=== PATIENT | male | born 1950 | race Caucasian/White ===

== ENCOUNTER 2021-06-20 09:52 | Inpatient (IN) | payer OTHER, MEDICARE ==
[2021-06-20] MEDS ORDERED: SODIUM CHLORIDE 0.9% 500 ML 500 ML IV ONE (10:29)
[2021-06-20] MEDS ORDERED: DILTIAZEM 125 MG in SODIUM CHLORIDE 0.9% 100 ML IV SCH (10:30)
[2021-06-20] MEDS ORDERED: DILTIAZEM DRIP BOLUS FROM BAG 1 MG SOLN IV ONE (10:30)
--- NOTE | 2021-06-20 10:34 | ED ---
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 Patient had presented to the water main installer helper's office with chief complaint of palpitations which have been ongoing for the past several weeks. Patient has had intermittent chest palpitations throughout his life. He has never been diagnosed with atrial fibrillation or atrial flutter or any dysrhythmia. He denies central chest pain. Denies dyspnea. Patient states the palpitations have been present for about 2 weeks. No focal numbness or weakness. No headach e. No rectal bleeding. - Related Data Home Medications Medication Instructions Recorded Confirmed Albuterol Sulfate [Proair Hfa] 2 puff INHALATION RT-Q6H PRN 06/20/21 06/20/21 Ascorbic Acid [Vitamin C] 500 mg PO DAILY 06/20/21 06/20/21 Aspirin EC [Ecotrin Low Dose] 81 mg PO DAILY 06/20/21 06/20/21 Cholecalciferol [Vitamin D3 (25 25 mcg PO DAILY 06/20/21 06/20/21 Mcg = 1000 Iu)] Ipratropium/Albuterol Sulfate 1 puff INHALATION RT-Q6H 06/20/21 06/20/21 [Combivent Respimat Inhaler] Metoprolol Tartrate [Lopressor] 25 mg PO BID 06/20/21 06/20/21 [place]-3 Fatty Acids/Fish Oil [Fish 1 cap PO DAILY 06/20/21 06/20/21 Oil 1,000 mg Softgel] Pravastatin Sodium [Pravachol] 40 mg PO HS 06/20/21 06/20/21 Allergies Allergy/AdvReac Type Severity Reaction Status Date / Time No Known Allergies Allergy Verified 06/20/21 10:58 Review of Systems ROS Statement: Those systems with pertinent positive or pertinent negative responses have been documented in the HPI. ROS Other: All systems not noted in ROS Statement are negative. Past Medical History Past Medical History: Chest Pain / Angina, Hypertension Past Surgical History: No Surgical Hx Reported Smoking Status: Never smoker Past Alcohol Use History: Daily Past Drug Use History: Marijuana General Exam Limitations: no limitations General appearance: alert, in no apparent distress Head exam: Present: atraumatic, normocephalic Eye exam: Present: normal appearance, PERRL ENT exam: Present: normal exam Neck exam: Present: normal inspection. Absent: tenderness, meningismus Respiratory exam: Present: normal lung sounds bilaterally. Absent: respiratory distress, wheezes Cardiovascular Exam: Present: tachycardia, irregular rhythm GI/Abdominal exam: Present: soft. Absent: distended, tenderness, guarding, rebound Extremities exam: Present: normal inspection, normal capillary refill. Absent: pedal edema, calf tenderness Neurological exam: Present: alert, oriented X3, CN II-XII intact. Absent: motor sensory deficit Psychiatric exam: Present: normal affect, normal mood Skin exam: Present: warm, dry, intact. Absent: cyanosis, diaphoretic Course Vital Signs 06/20/21 06/20/21 06/20/21 10:11 11:10 12:16 Temperature 98 F Pulse Rate 75 124 H 74 Respiratory 20 18 18 Rate Blood Pressure 141/85 154/116 152/96 O2 Sat by Pulse 97 98 96 Oximetry EKG Findings - EKG Comments: EKG Findings:: Neuro complex tachycardia rate of 129, suspect atrial fibrillation QRS duration 82, QTC 445, no ST segment elevation, PVC present. Repeat EKG sinus rhythm, rate of 72, NC interval 164, QRS duration 82, QTC [address] segment elevation. Medical Decision Making - Medical Decision Making 70-year-old male presenting with atrial fibrillation with RVR from Dr. Harris's office. He had been in a heart rates around 150 with suspected a flutter according to Dr. Harris prior to transfer to the emergency department. Patient has had intermittent palpitations without chest pain. No prior history of arrhythmia. He has a normal CBC, normal CMP, negative troponin. I did initiate Cardizem as well as heparin in the emergency department. His [id number] score is 2. Patient will be admitted to Dr. Rodriguez who is aware with cardiology on consultation. - Lab Data Result diagrams: 06/20/21 10:44 06/20/21 10:44 Lab Results 06/20/21 06/20/21 06/20/21 Range/Units 10:44 10:44 10:44 WBC 9.3 (3.8-10.6) k/uL RBC 5.16 (4.30-5.90) m/uL Hgb 17.3 (13.0-17.5) gm/dL Hct 48.8 (39.0-53.0) % MCV 94.5 (80.0-100.0) fL MCH 33.4 (25.0-35.0) pg MCHC 35.4 (31.0-37.0) g/dL RDW 12.1 (11.5-15.5) % Plt Count 264 (150-450) k/uL MPV 9.7 Neutrophils % 70 % Lymphocytes % 19 % Monocytes % 7 % Eosinophils % 1 % Basophils % 1 % Neutrophils # 6.5 (1.3-7.7) k/uL Lymphocytes # 1.8 (1.0-4.8) k/uL Monocytes # 0.7 (0-1.0) k/uL Eosinophils # 0.1 (0-0.7) k/uL Basophils # 0.1 (0-0.2) k/uL PT 9.8 (9.0-12.0) sec INR 0.9 (<1.2) APTT 22.9 (22.0-30.0) sec Sodium 135 L (137-145) mmol/L Potassium 4.5 (3.5-5.1) mmol/L Chloride 101 (98-107) mmol/L Carbon Dioxide 22 (22-30) mmol/L Anion Gap 12 mmol/L BUN 14 (9-20) mg/dL Creatinine 0.63 L (0.66-1.25) mg/dL Est GFR (CKD-EPI)AfAm >90 (>60 ml/min/1.73 sqM) Est GFR (CKD-EPI)NonAf >90 (>60 ml/min/1.73 sqM) Glucose 126 H (74-99) mg/dL Calcium 10.1 (8.4-10.2) mg/dL Magnesium 1.9 (1.6-2.3) mg/dL Total Bilirubin 0.9 (0.2-1.3) mg/dL AST 27 (17-59) U/L ALT 20 (4-49) U/L Alkaline Phosphatase 67 (38-126) U/L Troponin I (0.000-0.034) ng/mL Total Protein 8.0 (6.3-8.2) g/dL Albumin 4.8 (3.5-5.0) g/dL 06/20/21 Range/Units 10:44 WBC (3.8-10.6) k/uL RBC (4.30-5.90) m/uL Hgb (13.0-17.5) gm/dL Hct (39.0-53.0) % MCV (80.0-100.0) fL MCH (25.0-35.0) pg MCHC (31.0-37.0) g/dL RDW (11.5-15.5) % Plt Count (150-450) k/uL MPV Neutrophils % % Lymphocytes % % Monocytes % % Eosinophils % % Basophils % % Neutrophils # (1.3-7.7) k/uL Lymphocytes # (1.0-4.8) k/uL Monocytes # (0-1.0) k/uL Eosinophils # (0-0.7) k/uL Basophils # (0-0.2) k/uL PT (9.0-12.0) sec INR (<1.2) APTT (22.0-30.0) sec Sodium (137-145) mmol/L Potassium (3.5-5.1) mmol/L Chloride (98-107) mmol/L Carbon Dioxide (22-30) mmol/L Anion Gap mmol/L BUN (9-20) mg/dL Creatinine (0.66-1.25) mg/dL Est GFR (CKD-EPI)AfAm (>60 ml/min/1.73 sqM) Est GFR (CKD-EPI)NonAf (>60 ml/min/1.73 sqM) Glucose (74-99) mg/dL Calcium (8.4-10.2) mg/dL Magnesium (1.6-2.3) mg/dL Total Bilirubin (0.2-1.3) mg/dL AST (17-59) U/L ALT (4-49) U/L Alkaline Phosphatase (38-126) U/L Troponin I <0.012 (0.000-0.034) ng/mL Total Protein (6.3-8.2) g/dL Albumin (3.5-5.0) g/dL Critical Care Time Critical Care Time: Yes Total Critical Care Time: 35 Disposition Clinical Impression: New onset atrial fibrillation, Atrial fibrillation with RVR Disposition: ADMITTED IP TO THIS HOSP Condition: Stable Is patient prescribed a controlled substance at d/c from ED?: No Referrals: [facility],Clinic [Primary Care Provider] - 1-2 days Decision to Admit Reason: Admit from EC Decision Date: 06/20/21 Decision Time: 12:21
--- NOTE | 2021-06-20 11:07 | XR ---
EXAMINATION TYPE: XR chest 1V portable DATE OF EXAM: 06/20/2021 COMPARISON: Chest x-ray June 17, 2015 HISTORY: Dysrhythmia. TECHNIQUE: Single frontal view of the chest is obtained. FINDINGS: Patient more rotated to the right on current study. There is chronic parenchymal changes bi laterally without suspicious focal air space opacity, pleural effusion, or pneumothorax seen. Bibasi lar linear scarring and/or atelectasis. The cardiac silhouette size is upper limits of normal. The osseous structures are intact. IMPRESSION: No acute process. No significant change from prior.
[2021-06-20 11:21] LABS: ALT 20 U/L (4-49); AST 27 U/L (17-59); African American GFR (CKD) >90 (>60 ml/min/1.73 sqM); Albumin 4.8 g/dL (3.5-5.0); Alkaline Phosphatase 67 U/L (38-126); Anion Gap 12 mmol/L; Blood Urea Nitrogen 14 mg/dL (9-20); Calcium 10.1 mg/dL (8.4-10.2); Carbon Dioxide 22 mmol/L (22-30); Chloride 101 mmol/L (98-107); Glucose 126 mg/dL (74-99); Magnesium 1.9 mg/dL (1.6-2.3); Non-African American GFR(CKD) >90 (>60 ml/min/1.73 sqM); Potassium 4.5 mmol/L (3.5-5.1); Sodium 135 mmol/L (137-145); Total Bilirubin 0.9 mg/dL (0.2-1.3)
[2021-06-20 11:23] LABS: INR 0.9 (<1.2); Partial Thromboplastin Time 22.9 sec (22.0-30.0); Prothrombin Time 9.8 sec (9.0-12.0)
[2021-06-20 11:35] LABS: Basophils # (A) 0.1 k/uL (0-0.2); Basophils % (A) 1 %; Eosinophils # (A) 0.1 k/uL (0-0.7); Eosinophils % (A) 1 %; HCT 48.8 % (39.0-53.0); HGB 17.3 gm/dL (13.0-17.5); Lymphocytes # (A) 1.8 k/uL (1.0-4.8); Lymphocytes % (A) 19 %; MCH 33.4 pg (25.0-35.0); MCHC 35.4 g/dL (31.0-37.0); MCV 94.5 fL (80.0-100.0); Mean Platelet Volume 9.7; Monocytes # (A) 0.7 k/uL (0-1.0); Monocytes % (A) 7 %; Neutrophils # (A) 6.5 k/uL (1.3-7.7); Neutrophils % (A) 70 %; Platelet Count 264 k/uL (150-450); RBC 5.16 m/uL (4.30-5.90); RDW 12.1 % (11.5-15.5); WBC 9.3 k/uL (3.8-10.6)
[2021-06-20] MEDS ORDERED: HEPARIN SODIUM 1,000 UN/ML (10ML VL) IV PRN (11:49)
[2021-06-20] MEDS ORDERED: HEPARIN SODIUM 1,000 UN/ML (10ML VL) IV ONE (11:49)
[2021-06-20] MEDS ORDERED: ALBUTEROL NEBULIZED 2.5 MG/3 ML INHALATION PRN (11:56)
[2021-06-20] MEDS ORDERED: HEPARIN SOD,PORK IN 0.45% NACL 25,000 UNIT in 0.45% NACL 1 250ML.BAG IV SCH (12:00)
[2021-06-20] MEDS ORDERED: NALOXONE 0.4 MG/ML 1 ML VIAL IV PRN (12:16)
[2021-06-20] MEDS: METOPROLOL TARTRATE 50 MG TAB PO SCH ×2 (13:06→21:14)
--- NOTE | 2021-06-20 13:49 | P.HPIM ---
History of Present Illness 70-year-old pleasant male was sent in from a cardiology is office because of possible atrial flutter and fibrillation. Patient does have history of palpitations in the past never was diagnosed with atrial fibrillation. Patient had an echo echocardiogram today at bedside a period to half normal ejection fraction without any significant valvular abnormalities. Patient denied any fever chills dysuria cough. Patient denied any diarrhea patient is did not dehydrated at doesn't have any infection at this time. TSH will be ordered. Patient was given Cardizem patient converted to sinus patient uses 25 mg twice a day of metoprolol which can be switched to 50 mg twice a day oral. REVIEW OF SYSTEMS: CONSTITUTIONAL: No fever, no malaise, no fatigue. HEENT: No recent visual problems or hearing problems. Denied any sore throat. CARDIOVASCULAR: No chest pain, orthopnea, PND, no syncope. PULMONARY: No shortness of breath, no cough, no hemoptysis. GASTROINTESTINAL: No diarrhea, no nausea, no vomiting, no abdominal pain. NEUROLOGICAL: No headaches, no weakness, no numbness. HEMATOLOGICAL: Denies any bleeding or petechiae. GENITOURINARY: Denies any burning micturition, frequency, or urgency. MUSCULOSKELETAL/RHEUMATOLOGICAL: Denies any joint pain, swelling, or any muscle pain. ENDOCRINE: Denies any polyuria or polydipsia. The rest of the 14-point review of systems is negative. PHYSICAL EXAMINATION: GENERAL: The patient is alert and oriented x3, not in any acute distress. Well developed, well nourished. HEENT: Pupils are round and equally reacting to light. EOMI. No scleral icterus. No conjunctival pallor. Normocephalic, atraumatic. No pharyngeal erythema. No thyromegaly. CARDIOVASCULAR: S1 and S2 present. No murmurs, rubs, or gallops. PULMONARY: Chest is clear to auscultation, no wheezing or crackles. ABDOMEN: Soft, nontender, nondistended, normoactive bowel sounds. No palpable organomegaly. MUSCULOSKELETAL: No joint swelling or deformity. EXTREMITIES: No cyanosis, clubbing, or pedal edema. NEUROLOGICAL: Gross neurological examination did not reveal any focal deficits. SKIN: No rashes. Assessment and plan -Atrial fibrillation/flutter with rapid unclear rate presently converted to sinus rhythm appears to be obtained patient is metoprolol dose will be increased patient was also started on anticoagulation echocardiogram as mentioned above -Alcohol abuse does drink about the 4-5 beers a day counseling was provided but I do not expect any withdrawals. -Hypertension -Mild hyponatremia DVT prophylaxis: Patient is on Eliquis Past Medical History Past Medical History: Chest Pain / Angina, Hypertension Past Surgical History: No Surgical Hx Reported Smoking Status: Never smoker Past Alcohol Use History: Daily Past Drug Use History: Marijuana Medications and Allergies Home Medications Medication Instructions Recorded Confirmed Type Albuterol Sulfate [Proair Hfa] 2 puff INHALATION RT-Q6H PRN 06/20/21 06/20/21 History Ascorbic Acid [Vitamin C] 500 mg PO DAILY 06/20/21 06/20/21 History Aspirin EC [Ecotrin Low Dose] 81 mg PO DAILY 06/20/21 06/20/21 History Cholecalciferol [Vitamin D3 (25 25 mcg PO DAILY 06/20/21 06/20/21 History Mcg = 1000 Iu)] Ipratropium/Albuterol Sulfate 1 puff INHALATION RT-Q6H 06/20/21 06/20/21 History [Combivent Respimat Inhaler] Metoprolol Tartrate [Lopressor] 25 mg PO BID 06/20/21 06/20/21 History [place]-3 Fatty Acids/Fish Oil [Fish 1 cap PO DAILY 06/20/21 06/20/21 History Oil 1,000 mg Softgel] Pravastatin Sodium [Pravachol] 40 mg PO HS 06/20/21 06/20/21 History Allergies Allergy/AdvReac Type Severity Reaction Status Date / Time No Known Allergies Allergy Verified 06/20/21 10:58 Physical Exam Vitals: Vital Signs Temp Pulse Resp BP Pulse Ox 06/20/21 13:32 73 16 141/81 96 06/20/21 12:16 74 18 152/96 96 06/20/21 11:10 124 H 18 154/116 98 06/20/21 10:11 98 F 75 20 141/85 97 Intake and Output 06/19/21 06/20/21 06/20/21 22:59 06:59 14:59 Intake Total 10 Balance 10 Intake: Intake, IV Titration 10 Amount Diltiazem 125 mg In 10 Sodium Chloride 0.9% 100 ml @ 5 MG/HR 5 mls/hr IV .Q24H [facility] Rx#:[id number] Other: Weight 87.09 kg Results CBC & Chem 7: 06/20/21 10:44 06/20/21 10:44 Labs: Abnormal Lab Results - Last 24 Hours (Table) 06/20/21 Range/Units 10:44 Sodium 135 L (137-145) mmol/L Creatinine 0.63 L (0.66-1.25) mg/dL Glucose 126 H (74-99) mg/dL
--- NOTE | 2021-06-20 14:35 | CONS ---
CONSULTATION Mr. Whitt is a 70-year-old male with a history of hyperlipidemia, history of hypertension, [facility] [place], who presented with palpitations. He has been having palpitations on and off for a bit, but presented to the office today and an EKG showed evidence of atrial flutter. Patient has no documented atrial flutter in the past. He started to have palpitations a long time ago, but they are increasing in frequency and duration. This episode occurred in the middle of the night and persisted until he came into the emergency room. He feels occasional dizziness with it and does not feel well. He has chronic dyspnea on exertion related to his chronic obstructive lung disease. He has a prior history of smoking, which he stopped 20 years ago. He has no history of chest discomfort. He underwent cardiac catheterization about 10 years ago at [facility], and at that time he was told that he has mild obstructive disease. He has no PND, no orthopnea. No peripheral edema. No symptoms or history of congestive heart failure. He has a history of snoring but has not been evaluated for obstructive sleep apnea. MEDICATIONS: His medications at home include pravastatin 40 mg daily, metoprolol tartrate 25 mg twice a day, aspirin and ProAir in addition to Combivent. REVIEW OF SYSTEMS: RESPIRATORY SYSTEM: He has history of chronic obstructive lung disease, prior history of smoking. GI SYSTEM: No recent GI bleeding. No peptic ulcer disease. SYSTEM: No dysuria or hematuria. NERVOUS SYSTEM: No stroke or seizure. PHYSICAL EXAMINATION: He is a 70-year-old male, alert, oriented, in no apparent distress. Blood pressure running in the 140s over 80s with the heart rate in the 70s, back in sinus mechanism. HEAD: Normocephalic. EYES: Sclerae anicteric. NECK: Good carotid upstroke. No bruit. No jugular venous distention. LUNGS: Decreased air exchange. No wheezes. HEART: Regular rate and rhythm. S1, S2. No S3. No rub or significant murmur noted. ABDOMEN: Soft, nontender. Positive bowel sounds. No organomegaly. EXTREMITIES: No edema. Intact distal pulses. LAB DATA: Lab data revealed BUN and creatinine of 14 and 0.63, potassium 4.5. Troponin less than 0.012. His hemoglobin is 17.3, white blood cells of 9.3. Initial EKG revealed atrial flutter with rapid ventricular response and nonspecific ST-T wave changes. Subsequently he is in sinus mechanism with normal axis and intervals. Chest x-ray shows no acute infiltrate. IMPRESSION: 1. Paroxysmal atrial flutter, back in sinus mechanism. 2. History of hypertension. 3. History of hyperlipidemia. 4. Prior history of coronary artery disease by cardiac catheterization 10 years ago, asymptomatic at this time. 5. History of alcohol intake. Patient drinks 3 to 4 beers every day. RECOMMENDATIONS: I will start him on oral anticoagulation, increase the dose of his beta mandeep. I have discussed with him the importance of alcohol cessation in view of his history. I will obtain echocardiogram with Doppler. If he remains stable, I would expect he should be able to be discharged home tomorrow on anticoagulation and subsequently evaluated as an outpatient for possible ablation. He will require a sleep study as outpatient. Depending on his progress, further recommendations will be made. Thank you for this consult. Will follow with you. TARAN / BIJANN: [id number] / JIMY
[2021-06-20] MEDS: IPRATROPIUM-ALBUTEROL 3 ML NEB INHALATION SCH ×2 (14:49→20:12)
[2021-06-20] MEDS ORDERED: PANTOPRAZOLE 40 MG/10 ML VIAL IVP STA (14:56)
[2021-06-20] MEDS: APIXABAN 5 MG TAB PO SCH ×2 (18:46→21:12)
[2021-06-20] MEDS: ATORVASTATIN 40 MG TAB PO SCH (18:46)
[2021-06-20] MEDS ORDERED: PRAVASTATIN SODIUM 40 MG TAB PO SCH (21:00)
[2021-06-21] MEDS: IPRATROPIUM-ALBUTEROL 3 ML NEB INHALATION SCH ×3 (02:03→13:40)
[2021-06-21 06:58] LABS: Chol/HDL Ratio 2.62 Ratio; HDL Cholesterol 63.3 mg/dL (40.00-60.00); LDL Cholesterol,Calculated 75.9 mg/dL (0.0-131.0); VLDL Calculation 26.8 mg/dL (5.00-40.00)
[2021-06-21 08:07] LABS: Basophils % (A) 0 %; Eosinophils # (A) 0.1 k/uL (0-0.7); Eosinophils % (A) 1 %; HCT 46.1 % (39.0-53.0); HGB 15.4 gm/dL (13.0-17.5); Lymphocytes # (A) 1.7 k/uL (1.0-4.8); Lymphocytes % (A) 22 %; MCHC 33.5 g/dL (31.0-37.0); MCV 95.7 fL (80.0-100.0); Mean Platelet Volume 8.8; Monocytes # (A) 0.5 k/uL (0-1.0); Monocytes % (A) 7 %; Neutrophils # (A) 5.4 k/uL (1.3-7.7); Neutrophils % (A) 68 %; Platelet Count 226 k/uL (150-450); RBC 4.82 m/uL (4.30-5.90); RDW 12.2 % (11.5-15.5)
[2021-06-21] MEDS: METOPROLOL TARTRATE 50 MG TAB PO SCH (08:13)
[2021-06-21] MEDS: ATORVASTATIN 40 MG TAB PO SCH (08:13)
[2021-06-21] MEDS: APIXABAN 5 MG TAB PO SCH (08:13)
--- NOTE | 2021-06-21 08:13 | ECHOF ---
Referral Reason:A.Fib MEASUREMENTS -------- HEIGHT: 185.4 cm WEIGHT: 87.1 kg BP: 152/96 RVIDd: 3.2 cm (< 3.3) IVSd: 1.4 cm (0.6 - 1.1) LVIDd: 4.7 cm (3.9 - 5.3) LVPWd: 1.3 cm (0.6 - 1.1) IVSs: 1.9 cm LVIDs: 3.1 cm LVPWs: 1.6 cm LA Diam: 3.7 cm (2.7 - 3.8) LAESV Index (A-L): 20.94 ml/m Ao Diam: 3.8 cm (2.0 - 3.7) AV Cusp: 2.3 cm (1.5 - 2.6) MV EXCURSION: 21.866 mm (> 18.000) MV EF SLOPE: 96 mm/s (70 - 150) EPSS: 1.2 cm MV E Bud: 0.58 m/s MV DecT: 303 ms MV A Bud: 0.64 m/s MV E/A Ratio: 0.91 FINDINGS -------- Sinus rhythm. This was a technically difficult study with suboptimal views. The left ventricular size is normal. There is moderate concentric left ventricular hypertrophy. O verall left ventricular systolic function is normal with, an EF between 60 - 65 %. The right ventricle is normal in size and function. Normal LA size by volume 22+/-6 ml/m2. The right atrium is normal in size. 5 ml of Lumason was utilized for enhancement of images. Interatrial and interventricular septum intact. The aortic valve is trileaflet, and appears structurally normal. No aortic stenosis or regurgitation. Mild mitral annular calcification present. The tricuspid valve appears structurally normal. Unable to estimate RVSP due to inadequate TR jet s pectral doppler profile. There is no pulmonic regurgitation present. The aortic root is dilated measuring 3.8cm. Normal inferior vena cava with normal inspiratory collapse consistent with estimated right atrial pre ssure of 5 mmHg. There is no pericardial effusion. CONCLUSIONS -------- 1. The left ventricular size is normal. 2. There is moderate concentric left ventricular hypertrophy. 3. Overall left ventricular systolic function is normal with, an EF between 60 - 65 %. 4. 5 ml of Lumason was utilized for enhancement of images. 5. The aortic valve is trileaflet, and appears structurally normal. No aortic stenosis or regurgitati on. 6. Mild mitral annular calcification present. 7. The aortic root is dilated measuring 3.8cm. 8. There is no pericardial effusion. PACKAGING SALES CONSULTANT: Negar Crisostomo RDCS
[2021-06-21 08:23] LABS: African American GFR (CKD) >90 (>60 ml/min/1.73 sqM); Anion Gap 11 mmol/L; Blood Urea Nitrogen 18 mg/dL (9-20); Calcium 9.6 mg/dL (8.4-10.2); Carbon Dioxide 21 mmol/L (22-30); Chloride 104 mmol/L (98-107); Glucose 177 mg/dL (74-99); Non-African American GFR(CKD) >90 (>60 ml/min/1.73 sqM); Potassium 4.4 mmol/L (3.5-5.1); Sodium 136 mmol/L (137-145)
[2021-06-21 08:25] LABS: Prothrombin Time 10.3 sec (9.0-12.0)
[2021-06-21 08:48] VITALS: RESP 16
[2021-06-21] MEDS ORDERED: ASCORBIC ACID 500 MG TAB PO SCH (09:00)
[2021-06-21] MEDS ORDERED: NON FORMULARY DRUG (Omega-3 Fatty Acids/Fish Oil [Fish Oil 1,000 Mg Softgel] 1 EACH Capsul PO SCH (09:00)
--- NOTE | 2021-06-21 11:23 | PN ---
PROGRESS NOTE Mr. Whitt is a 70-year-old male who presented with an episode of palpitations, was in atrial flutter and subsequently converted back to sinus mechanism. During the night he had an episode of atrial flutter/fibrillation, converted back to sinus mechanism without pause. He is doing well this morning. He is denying any chest pain. He denies any dizziness. His breathing is stable. He denies any nausea or vomiting. He has continued to be on Eliquis 5 mg twice a day, Lipitor 40 mg daily, metoprolol tartrate 50 mg twice a day, Protonix. PHYSICAL EXAMINATION: Blood pressure is running in the 150s to 160 with a heart rate in the 70s. LUNGS: Clear. HEART: Regular rate and rhythm. S1, S2. No S3. No rub. ABDOMEN: Soft, nontender. EXTREMITIES: No edema. LAB DATA: BUN and creatinine are 18 and 0.6. Potassium 4.4. He had an echocardiogram that showed preserved left ventricular size and systolic function. IMPRESSION: 1. Paroxysmal atrial flutter occurring more at night; rule out exacerbated by obstructive sleep apnea. 2. History of hypertension. 3. Hyperlipidemia. 4. Mild coronary artery disease by cardiac catheterization about 10 years ago. 5. History of alcohol intake. 6. Possible obstructive sleep apnea. RECOMMENDATIONS: I have encouraged him to stop the alcohol completely. I will increase the dose of his beta mandeep to 50 mg three times a day. He should be able to be discharged home today and follow up with Dr. Goldstein this coming Saturday as scheduled. Patient may benefit from an ablation down the road. MMODL / IJN: [id number] /
[2021-06-21 15:53] VITALS: BP 158/76; PULSE 76; TEMP 98.2
[2021-06-21] MEDS ORDERED: METOPROLOL TARTRATE 50 MG TAB PO SCH (16:00)
--- NOTE | 2021-06-22 08:48 | CDI ---
Documentation Clarification Form Date: 06/22/21 From: Marisela Toscano Admit Date: 06/20/2021 12:17:00 PM Patient Name: Cy Whitt Visit Number: [id number] Discharge Date: 06/21/2021 03:53:00 PM ATTENTION: The Clinical Documentation Specialists (CDI) and [facility] Coding Staff appreciate your assistance in clarifying documentation. Please respond to the clarification below the line at the bottom and electronically sign. The CDI & [facility] Coding staff will review the response and follow-up if needed. Please note: Queries are made part of the Legal Health Record. If you have any questions, please contact the author of this message via ITS. Dr. Monica Miranda, Atrial Flutter is documented in ED note, H&P, your consult & PNs. Additional clarification regarding the type of Atrial Flutter is requested. History/Risk factors: COPD, HTN, ZAINA, HLD, CAD, Alcohol abuse Clinical Indicators: 70-year-old pleasant male was sent in from a cardiology is office because of possible atrial flutter and fibrillation. Patient does have history of palpitations in the past never was diagnosed with atrial fibrillation. EKG/telemetry: Neuro complex tachycardia rate of 129, suspect atrial fibrillation QRS duration 82, QTC 445, no ST segment elevation, PVC present. Repeat EKG sinus rhythm, rate of 72, RI interval 164, QRS duration 82, QTC 416. No ST segment elevation. Treatment: Diltiazem drip, increase Metoprolol to 3 times a day Please clarify the type of Atrial Flutter, if known: [XX ] Typical/Type I [ ] Atypical/Type II [ ] Other, please specify [ ] Unable to determine MTDD
--- NOTE | 2021-06-22 15:56 | P.DS ---
Providers Date of admission: 06/20/21 12:17 Attending physician: Aishwarya Rodriguez Consults: 06/20/21 12:17 Consult Physician Routine Consulting Provider: Monica Miranda Consult Reason/Comments: New-onset atrial fibrillation with RVR Do you want consulting provider notified?: Yes Primary care physician: [facility] Hospital Course: Final diagnoses -Paroxysmal Atrial fibrillation/flutter with rapid ventricular rate -Alcohol abuse does drink about the 4-5 beers a day counseling was provided -Hypertension -Mild hyponatremia -Mild coronary artery disease by cardiac catheterization about 10 years ago Discharge disposition Patient is discharged home in a stable condition with a increase in his dosing of metoprolol. 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 We did start eliquis 5 mg by mouth twice a day. Lipitor 40 mg by mouth daily was also added. Hospital course Patient was evaluated by cardiology services after presenting with episode of palpitations and was subsequently found to be in A. fib flutter RVR however he converted back to sinus mechanism. Patient states that he has a history for a flutter for the last 45 years however has not been causing any problems. He is symptomatic when he converts into atrial flutter as he does experience a rapid ventricular rate. Patient's dosing of his beta mandeep was increased to 50 mg 3 times a day. He had an echocardiogram this admission which was an EF of 60 to 65%. There is preserved LV function with moderate concentric left ventricular hypertrophy. Labs this admission show a troponin that was negative, HDL 63, s odium 136, coagulation panel and hematology panel are within normal limits. Covid PCR is not detected. Vital signs have remained stable at temp of 98.2, heart rate 60 sinus rhythm, blood pressure 158/76 and 96% on room air. 06/21/2021 Patient today is evaluated at the bedside. He is denying any chest pain, palpitations, cough or shortness of breath. Lungs are clear, S1-S2 auscultated, abdomen soft nontender. Focal neurological exam is within normal limits. He did have 1 episode through out the evening of a short run of rapid ventricular rate. He was symptomatic at that time. It did resolve spontaneously. After cardiology services reviewed telemetry they recommended to increase his metoprolol and he is stable for discharge home. Vital signs are stable and labs are within normal limits. Please see medication reconciliation for list of current medications. Thank you for allowing us to participate in the care of this patient. Patient Condition at Discharge: Stable Plan - Discharge Summary Discharge Rx Participant: Yes New Discharge Prescriptions: New Atorvastatin [Lipitor] 40 mg PO DAILY #90 tab Apixaban [Eliquis] 5 mg PO BID 30 Days #60 tab Metoprolol Tartrate [Lopressor] 50 mg PO TID #270 tab Continue Ipratropium/Albuterol Sulfate [Combivent Respimat Inhaler] 1 puff INHALATION RT-Q6H Albuterol Sulfate [Proair Hfa] 2 puff INHALATION RT-Q6H PRN PRN Reason: Shortness Of Breath Ascorbic Acid [Vitamin C] 500 mg PO DAILY Cholecalciferol [Vitamin D3 (25 Mcg = 1000 Iu)] 25 mcg PO DAILY Discontinued Huxley-3 Fatty Acids/Fish Oil [Fish Oil 1,000 mg Softgel] 1 cap PO DAILY Pravastatin Sodium [Pravachol] 40 mg PO HS Metoprolol Tartrate [Lopressor] 25 mg PO BID Aspirin EC [Ecotrin Low Dose] 81 mg PO DAILY Discharge Medication List Albuterol Sulfate [Proair Hfa] 2 puff INHALATION RT-Q6H PRN 06/20/21 [History] Apixaban [Eliquis] 5 mg PO BID 30 Days #60 tab 06/20/21 [Rx] Ascorbic Acid [Vitamin C] 500 mg PO DAILY 06/20/21 [History] Cholecalciferol [Vitamin D3 (25 Mcg = 1000 Iu)] 25 mcg PO DAILY 06/20/21 [History] Ipratropium/Albuterol Sulfate [Combivent Respimat Inhaler] 1 puff INHALATION RT- Q6H 06/20/21 [History] Atorvastatin [Lipitor] 40 mg PO DAILY #90 tab 06/21/21 [Rx] Metoprolol Tartrate [Lopressor] 50 mg PO TID #270 tab 06/21/21 [Rx] Follow up Appointment(s)/Referral(s): Aleajndro Goldstein DO [STAFF PHYSICIAN] - 06/23/21 [facility],Clinic [Primary Care Provider] - 1-2 days Patient Instructions/Handouts: Apixaban (By mouth), Atrial Flutter (ED), Sleep Apnea (DC) Activity/Diet/Wound Care/Special Instructions: Landon zepeda - $90.50 - free 30 day coupon [facility], [place] will cover this med. Discharge Disposition: HOME SELF-CARE
== END 2021-06-21 15:53 | disposition home or self-care (01) | DRG 309 ==
LOC: EC 09:52 → 3SCARD 12:17
PROVIDERS: ADMIT Internal Medicine; ATTEND Internal Medicine
DX: I48.0 Paroxysmal atrial fibrillation (principal); E87.1 Hypo-osmolality and hyponatremia; I11.9 Hypertensive heart disease without heart failure; I48.3 Typical atrial flutter; J44.9 Chronic obstructive pulmonary disease, unspecified; Z20.822 Contact with and (suspected) exposure to COVID-19; I10 Essential (primary) hypertension; F10.10 Alcohol abuse, uncomplicated; G47.33 Obstructive sleep apnea (adult) (pediatric); E78.5 Hyperlipidemia, unspecified; I25.10 Atherosclerotic heart disease of native coronary artery without angina pectoris; Z79.82 Long term (current) use of aspirin; Z79.899 Other long term (current) drug therapy; Z71.41 Alcohol abuse counseling and surveillance of alcoholic; Z87.891 Personal history of nicotine dependence
CPT/HCPCS: 36415; 71045; 80048; 80053; 80061; 83735; 84443; 84484; 85025; 85610; 85730; 87635; 93005; 93306; 94640; 94760; 96365; 96366; 96367; 96375; 96376; 99291

== ENCOUNTER 2021-08-15 09:15 | Emergency (ER) | payer OTHER, MEDICARE ==
[2021-08-15 09:25] VITALS: BP 180/75; PULSE 51; RESP 18; TEMP 98.9
[2021-08-15 09:58] LABS: Basophils % (A) 0 %; Eosinophils # (A) 0.2 k/uL (0-0.7); Eosinophils % (A) 3 %; HCT 46.7 % (39.0-53.0); HGB 15.7 gm/dL (13.0-17.5); Lymphocytes # (A) 1.7 k/uL (1.0-4.8); Lymphocytes % (A) 19 %; MCH 33.2 pg (25.0-35.0); MCHC 33.7 g/dL (31.0-37.0); MCV 98.5 fL (80.0-100.0); Mean Platelet Volume 8.5; Monocytes # (A) 0.6 k/uL (0-1.0); Monocytes % (A) 7 %; Neutrophils % (A) 68 %; Platelet Count 229 k/uL (150-450); RBC 4.74 m/uL (4.30-5.90); WBC 8.8 k/uL (3.8-10.6)
--- NOTE | 2021-08-15 10:00 | ED ---
General Adult HPI - General Chief complaint: Recheck/Abnormal Lab/Rx Stated complaint: Abnormal labs Time Seen by Provider: 08/15/21 09:27 Source: patient, RN notes reviewed Mode of arrival: ambulatory Limitations: no limitations - History of Present Illness Initial comments: 71-year-old male with a past medical history of hypertension presents to the e mergency room for a chief complaint of abnormal lab draw. Patient had routine blood work done as he is scheduled to get a cardiac catheterization in 2 weeks. He got a call today that his blood work yesterday showed a high potassium. Patient is not having any symptoms. He denies chest pain or palpitations. Feels his normal self.Patient has no other complaints at this time including shortness of breath, chest pain, abdominal pain, nausea or vomiting, headache, or visual changes. - Related Data Home Medications Medication Instructions Recorded Confirmed Albuterol Sulfate [Proair Hfa] 2 puff INHALATION RT-Q6H PRN 06/20/21 08/15/21 Ascorbic Acid [Vitamin C] 500 mg PO DAILY 06/20/21 08/15/21 Cholecalciferol [Vitamin D3 (25 25 mcg PO DAILY 06/20/21 08/15/21 Mcg = 1000 Iu)] Ipratropium/Albuterol Sulfate 1 puff INHALATION RT-Q6H 06/20/21 08/15/21 [Combivent Respimat Inhaler] Pravastatin Sodium [Pravachol] 40 mg PO HS 08/15/21 08/15/21 Previous Rx's Medication Instructions Recorded Apixaban [Eliquis] 5 mg PO BID 30 Days #60 tab 06/20/21 Metoprolol Tartrate [Lopressor] 50 mg PO TID #270 tab 06/21/21 Allergies Allergy/AdvReac Type Severity Reaction Status Date / Time No Known Allergies Allergy Verified 08/15/21 10:15 Review of Systems ROS Statement: Those systems with pertinent positive or pertinent negative responses have been documented in the HPI. ROS Other: All systems not noted in ROS Statement are negative. Past Medical History Past Medical History: Hypertension History of Any Multi-Drug Resistant Organisms: None Reported Past Surgical History: No Surgical Hx Reported Past Anesthesia/Blood Transfusion Reactions: No Reported Reaction Past Psychological History: No Psychological Hx Reported Smoking Status: Never smoker Past Alcohol Use History: Daily Past Drug Use History: Marijuana General Exam Limitations: no limitations General appearance: alert, in no apparent distress Head exam: Present: atraumatic Eye exam: Present: normal appearance, PERRL, EOMI. Absent: scleral icterus, conjunctival injection ENT exam: Present: normal exam, mucous membranes moist Neck exam: Present: normal inspection, full ROM. Absent: tenderness Respiratory exam: Present: normal lung sounds bilaterally. Absent: respiratory distress, wheezes Cardiovascular Exam: Present: regular rate, normal rhythm, normal heart sounds Course Vital Signs 08/15/21 09:17 Temperature 98.9 F Pulse Rate 51 L Respiratory 18 Rate Blood Pressure 180/75 O2 Sat by Pulse 94 L Oximetry EKG Findings - EKG Comments: EKG Findings:: sinus bradycardia, ventricular rate 47, ND interval 176, QTc 380 Medical Decision Making - Medical Decision Making Repeat potassium was normal. [facility] Patient can be discharged home. Will return here for any worsening symptoms. Patient does have mild bradycardia however he states this is normal for him. States he takes metoprolol this is why. He reports his doctor is aware. He is not having any lightheadedness or any symptoms. - Lab Data Result diagrams: 08/15/21 09:51 08/15/21 09:51 Lab Results 08/15/21 08/15/21 Range/Units 09:51 09:51 WBC 8.8 (3.8-10.6) k/uL RBC 4.74 (4.30-5.90) m/uL Hgb 15.7 (13.0-17.5) gm/dL Hct 46.7 (39.0-53.0) % MCV 98.5 (80.0-100.0) fL MCH 33.2 (25.0-35.0) pg MCHC 33.7 (31.0-37.0) g/dL RDW 13.0 (11.5-15.5) % Plt Count 229 (150-450) k/uL MPV 8.5 Neutrophils % 68 % Lymphocytes % 19 % Monocytes % 7 % Eosinophils % 3 % Basophils % 0 % Neutrophils # 6.0 (1.3-7.7) k/uL Lymphocytes # 1.7 (1.0-4.8) k/uL Monocytes # 0.6 (0-1.0) k/uL Eosinophils # 0.2 (0-0.7) k/uL Basophils # 0.0 (0-0.2) k/uL Sodium 134 L (137-145) mmol/L Potassium 4.5 (3.5-5.1) mmol/L Chloride 102 (98-107) mmol/L Carbon Dioxide 24 (22-30) mmol/L Anion Gap 8 mmol/L BUN 17 (9-20) mg/dL Creatinine 0.63 L (0.66-1.25) mg/dL Est GFR (CKD-EPI)AfAm >90 (>60 ml/min/1.73 sqM) Est GFR (CKD-EPI)NonAf >90 (>60 ml/min/1.73 sqM) Glucose 124 H (74-99) mg/dL Calcium 9.4 (8.4-10.2) mg/dL Magnesium 1.9 (1.6-2.3) mg/dL Total Bilirubin 0.9 (0.2-1.3) mg/dL AST 32 (17-59) U/L ALT 24 (4-49) U/L Alkaline Phosphatase 62 (38-126) U/L Total Protein 7.6 (6.3-8.2) g/dL Albumin 4.5 (3.5-5.0) g/dL Disposition Clinical Impression: Normal exam Disposition: HOME SELF-CARE Condition: Good Additional Instructions: please follow-up with your doctor in one to 2 days. Return to the emergency room for any worsening symptoms. Is patient prescribed a controlled substance at d/c from ED?: No Referrals: [facility],Clinic [Primary Care Provider] - 1-2 days Time of Disposition: 11:07
[2021-08-15 10:10] LABS: ALT 24 U/L (4-49); AST 32 U/L (17-59); African American GFR (CKD) >90 (>60 ml/min/1.73 sqM); Albumin 4.5 g/dL (3.5-5.0); Alkaline Phosphatase 62 U/L (38-126); Anion Gap 8 mmol/L; Blood Urea Nitrogen 17 mg/dL (9-20); Calcium 9.4 mg/dL (8.4-10.2); Carbon Dioxide 24 mmol/L (22-30); Chloride 102 mmol/L (98-107); Glucose 124 mg/dL (74-99); Magnesium 1.9 mg/dL (1.6-2.3); Non-African American GFR(CKD) >90 (>60 ml/min/1.73 sqM); Potassium 4.5 mmol/L (3.5-5.1); Sodium 134 mmol/L (137-145); Total Bilirubin 0.9 mg/dL (0.2-1.3); Total Protein 7.6 g/dL (6.3-8.2)
== END 2021-08-15 11:26 | disposition home or self-care (01) ==
LOC: EC 09:15
DX: Z00.00 Encounter for general adult medical examination without abnormal findings (principal); I10 Essential (primary) hypertension
CPT/HCPCS: 36415; 80053; 83735; 85025; 93005; 99283

== ENCOUNTER 2021-08-28 05:47 | Day surgery (SDC) | payer MEDICARE, OTHER ==
[2021-08-21 15:57] VITALS: BMI 25.8
[~2021-08-28 05:47] MED LIST: LACTATED RINGERS 1,000 ML IV SCH
[2021-08-28] MEDS ORDERED: SODIUM CHLORIDE 0.9% 1,000 ML IV SCH (05:57)
[2021-08-28] MEDS ORDERED: SODIUM CHLORIDE 0.9% 1,000 ML IV ONE ×2 (06:56→08:52)
[2021-08-28] MEDS: APIXABAN 5 MG TAB PO SCH ×2 (07:21→20:40)
[2021-08-28] MEDS ORDERED: HEPARIN SOD,PORK IN 0.45% NACL 25,000 UNIT in 0.45% NACL 1 250ML.BAG IV ONE (07:33)
[2021-08-28] MEDS ORDERED: LIDOCAINE 1% INJ 10MG/ML (20 ML MDV) ONE (07:41)
[2021-08-28] MEDS ORDERED: LIDOCAINE 1% INJ 10MG/ML (20 ML MDV) SQ ONE (08:05)
[2021-08-28] MEDS ORDERED: IOPAMIDOL-370 100ML BTL INJ ONE (08:53)
[2021-08-28] MEDS ORDERED: METOPROLOL TARTRATE 50 MG TAB PO SCH (09:00)
[2021-08-28] MEDS ORDERED: ALBUTEROL NEBULIZED 2.5 MG/3 ML INHALATION PRN (09:47)
[2021-08-28] MEDS ORDERED: ACETAMINOPHEN TAB 325 MG TAB PO PRN (09:49)
[2021-08-28] MEDS ORDERED: ACETAMINOPHEN IV (For NPO) 1,000 MG in EMPTY BAG 1 BAG IVPB ONE (09:55)
--- NOTE | 2021-08-28 10:13 | P.HPCAR ---
History of Present Illness This is Dr. Newell dictating an H/P on this patient The patient was interviewed and examined IMPRESSION / ASSESSMENT: Paroxysmal atrial fibrillation with RVR Hypertension Nonobstructive CAD COPD PLAN: Proceed with pulmonary vein isolation for management of paroxysmal atrial fibrillation Will reduce metoprolol to 50 g twice daily thereafter Reassessment of antihypertensive regimen as an outpatient with Dr. Goldstein HPI Patient complains of recurrent palpitations Recent increase in frequency He is hospitalized for an episode of atrial fibrillation Twelve-lead EKG confirms atrial fibrillation with RVR that lasted for about 24 hours At that time he was also started on anticoagulation for stroke prevention Today he looks comfortable in no respiratory distress no chest discomfort No GI symptoms no pulmonary symptoms No chest discomfort no dizziness or lightheadedness for the last 24 hours no undue shortness of breath ROS: No fever chills or rigors, no cough, phlegm or expectoration, no nausea, vomiting or diarrhea, no hematuria, dysuria, no musculoskeletal complaints, no strokes or seizures, no skin lesions. EXAMINATION: 98.8F blood pressure 160/84 mmHg Breath sounds are clear no rhonchi no crackles Heart sounds S1 and S2 are normal no murmurs or gallops Lungs reduced breath sounds bilaterally no rhonchi no crackles Abdomen is soft nontender External days warm pulses are well palpable in both groins No lower extremity edema REVIEW OF LABS, ECG & MEDICAL DATA Colitis PCR negative Physical Exam Vitals: Vital Signs Temp Pulse Resp BP Pulse Ox 08/28/21 06:57 98.8 F 60 16 160/84 94 L Intake and Output 08/27/21 08/28/21 08/28/21 22:59 06:59 14:59 Intake Total 100 1175 Balance 100 1175 Intake: IV 100 1175 Other: Weight 87.3 kg Past Medical History Past Medical History: Atrial Fibrillation, Cancer, GERD/Reflux, Hypertension Additional Past Medical History / Comment(s): BASAL CELL CANCER, POSSIBLE COVID (OCTOBER 2020)., SEE CARDIOLOGY H & P. History of Any Multi-Drug Resistant Organisms: None Reported Past Surgical History: Heart Catheterization, Tonsillectomy Additional Past Surgical History / Comment(s): HEART CATH ([facility] ? 10 YRS AGO) Past Anesthesia/Blood Transfusion Reactions: No Reported Reaction Past Psychological History: No Psychological Hx Reported Smoking Status: Former smoker Past Alcohol Use History: Occasional Additional Past Alcohol Use History / Comment(s): QUIT SMOKING 1999., STARTED AGE 18, HX OF 2 PPD. Past Drug Use History: Marijuana Additional Drug Use History / Comment(s): NO CURRENT MARIJUANA - Past Family History Mother Family Medical History: Cancer Father Family Medical History: Cancer Sister(s) Family Medical History: Cancer Physical Examination Vital Signs Temp Pulse Resp BP Pulse Ox 08/28/21 06:57 98.8 F 60 16 160/84 94 L Intake and Output 08/27/21 08/28/21 08/28/21 22:59 06:59 14:59 Intake Total 100 1175 Balance 100 1175 Intake: IV 100 1175 Other: Weight 87.3 kg Results Current Medications Generic Name Dose Route Start Last Admin Trade Name Freq PRN Reason Stop Dose Admin Acetaminophen 650 mg 08/28/21 09:49 Acetaminophen Tab 325 Mg Tab PO 09/27/21 09:50 Q6HR PRN Mild Pain Albuterol Sulfate 2 puff 08/28/21 09:47 Albuterol Hfa Inhaler INHALATION 09/27/21 09:48 RT-Q6H PRN Shortness Of Breath Apixaban 5 mg 08/28/21 09:00 08/28/21 07:21 Apixaban 5 Mg Tab PO 09/27/21 09:01 5 mg BID BILL Administration Protocol Apixaban 5 mg 08/28/21 21:00 Apixaban 5 Mg Tab PO 09/27/21 21:01 BID BILL Protocol Furosemide 40 mg 08/29/21 06:00 Furosemide 40 Mg Tab PO 09/28/21 06:01 DAILY BILL Acetaminophen 1,000 mg/ IV 100 mls @ 400 mls/hr 08/28/21 09:55 Solution IVPB 08/28/21 10:09 ONCE ONE Metoprolol Tartrate 50 mg 08/28/21 21:00 Metoprolol Tartrate 50 Mg Tab PO 09/27/21 21:01 BID BILL Pravastatin Sodium 40 mg 08/28/21 21:00 Pravastatin Sodium 80 Mg Tab PO 09/27/21 21:01 HS BILL Sodium Chloride 12 ml 08/28/21 21:00 Sodium Chloride 0.9% Flush 10 Ml Syringe IV 09/27/21 21:01 Q12HR BILL Intake and Output 08/27/21 08/28/21 08/28/21 22:59 06:59 14:59 Intake Total 100 1175 Balance 100 1175 Intake: IV 100 1175 Other: Weight 87.3 kg
--- NOTE | 2021-08-28 10:16 | P.PRLE ---
RE: Cy Whitt Dear Blossom Benoit Jose Eduardo underwent pulmonary vein isolation with cryoablation, successfully I reduce the dose of metoprolol to 50 mg twice daily He does have hypertension and will need a reevaluation of his antihypertensive regimen as an outpatient He will continue ELIQUIS unchanged Thank you for entrusting me with the care of the patient Warm regards Sincerely Corky Newell
--- NOTE | 2021-08-28 10:18 | P.HPCAR ---
History of Present Illness Patient was seen and evaluated at 7:45 AM prior to the procedure Please see H&P dictated later today Physical Exam Vitals: Vital Signs Temp Pulse Resp BP Pulse Ox 08/28/21 06:57 98.8 F 60 16 160/84 94 L Intake and Output 08/27/21 08/28/21 08/28/21 22:59 06:59 14:59 Intake Total 100 1175 Balance 100 1175 Intake: IV 100 1175 Other: Weight 87.3 kg Past Medical History Past Medical History: Atrial Fibrillation, Cancer, GERD/Reflux, Hypertension Additional Past Medical History / Comment(s): BASAL CELL CANCER, POSSIBLE COVID (OCTOBER 2020)., SEE CARDIOLOGY H & P. History of Any Multi-Drug Resistant Organisms: None Reported Past Surgical History: Heart Catheterization, Tonsillectomy Additional Past Surgical History / Comment(s): HEART CATH ([facility] ? 10 YRS AGO) Past Anesthesia/Blood Transfusion Reactions: No Reported Reaction Past Psychological History: No Psychological Hx Reported Smoking Status: Former smoker Past Alcohol Use History: Occasional Additional Past Alcohol Use History / Comment(s): QUIT SMOKING 1999., STARTED AGE 18, HX OF 2 PPD. Past Drug Use History: Marijuana Additional Drug Use History / Comment(s): NO CURRENT MARIJUANA - Past Family History Mother Family Medical History: Cancer Father Family Medical History: Cancer Sister(s) Family Medical History: Cancer Physical Examination Vital Signs Temp Pulse Resp BP Pulse Ox 08/28/21 06:57 98.8 F 60 16 160/84 94 L Intake and Output 08/27/21 08/28/21 08/28/21 22:59 06:59 14:59 Intake Total 100 1175 Balance 100 1175 Intake: IV 100 1175 Other: Weight 87.3 kg Results Current Medications Generic Name Dose Route Start Last Admin Trade Name Freq PRN Reason Stop Dose Admin Acetaminophen 650 mg 08/28/21 09:49 Acetaminophen Tab 325 Mg Tab PO 09/27/21 09:50 Q6HR PRN Mild Pain Albuterol Sulfate 2 puff 08/28/21 09:47 Albuterol Hfa Inhaler INHALATION 09/27/21 09:48 RT-Q6H PRN Shortness Of Breath Apixaban 5 mg 08/28/21 09:00 08/28/21 07:21 Apixaban 5 Mg Tab PO 09/27/21 09:01 5 mg BID [facility] Administration Protocol Apixaban 5 mg 08/28/21 21:00 Apixaban 5 Mg Tab PO 09/27/21 21:01 BID [facility] Protocol Furosemide 40 mg 08/29/21 06:00 Furosemide 40 Mg Tab PO 09/28/21 06:01 DAILY BILL Acetaminophen 1,000 mg/ IV 100 mls @ 400 mls/hr 08/28/21 09:55 Solution IVPB 08/28/21 10:09 ONCE ONE Metoprolol Tartrate 50 mg 08/28/21 21:00 Metoprolol Tartrate 50 Mg Tab PO 09/27/21 21:01 BID [facility] Pravastatin Sodium 40 mg 08/28/21 21:00 Pravastatin Sodium 80 Mg Tab PO 09/27/21 21:01 HS [facility] Sodium Chloride 12 ml 08/28/21 21:00 Sodium Chloride 0.9% Flush 10 Ml Syringe IV 09/27/21 21:01 Q12HR [facility] Intake and Output 08/27/21 08/28/21 08/28/21 22:59 06:59 14:59 Intake Total 100 1175 Balance 100 1175 Intake: IV 100 1175 Other: Weight 87.3 kg
--- NOTE | 2021-08-28 10:40 | P.EPPROC ---
- EP Procedure Note Electrophysiology Procedure Note: PROCEDURE Diagnoses EP study and pulmonary vein isolation with cryoablation DIAGNOSIS Atrial fibrillation, symptomatic, refractory to therapy, paroxysmal RESULT No left atrial appendage mass or pericardial effusion seen on intracardiac echo Successful A. 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 Procedure performed under general anesthesia Esophagus was intubated. Esophageal temperature monitoring with circa catheter. Esophageal deflection with an endoscope to avoid hypothermia of the esophagus. After initial muscle relaxant use, muscle relaxants were not given thereafter in order to assess phrenic nerve during procedure. Patient prepped and draped as per protocol Cryo ablation-set up with standard preparation of the cryoablation tools done. Femoral Venous access obtained on the right and left groins and sheaths placed Diagnostic catheters for the high right atrium, phrenic nerve stimulation and pacing, His bundle, coronary sinus placed Intracardiac echo catheter placed. Long sheath placed in the right atrium Left and right transseptal catheterization performed under intracardiac echo guidance. Intravenous heparin with aCT above 300 Later, catheter positioning and balloon positioning in the left atrium and pulmonary veins, under intracardiac echo guidance Diagnostic EP study with coronary sinus pacing and recording. Isuprel used Baseline measurements: Sinus cycle length 900, KY 136, QRS 93 and QT 345 AH 69 and HV 50 ms Sinus node recovery times at 600, 504 100 ms were 1308, 1271 and 1280 ms. Corrected sinus node recovery times at the upper limits of normal AV node Wenckebach block 340 ms in the baseline state AV node Wenckebach block 240 ms on Isuprel Transseptal catheterization performed RA pressure 11/07/13 LA pressure 08/04/17 Transseptal catheterization performed with standard sheath. The cryoablation sheath was then placed with an over the wire exchange without any acute complications. The cryoablation balloon was placed in the office of each pulmonary vein and all 4 pulmonary veins were isolated. IV dye was injected to confirm occlusion. Goal: achieve complete occlusion of the pulmonary vein, achieve -30 degrees C at 30 seconds and achieve -40 degrees C at 60 seconds and a time to effect of less than 60 seconds. If not, the balloon was repositioned to obtain this result After completion of Cryoblation with durations from 180-240 seconds, entrance block was confirmed with the Attain circular catheter in a roving fashion around the antrum of the pulmonary veins Phrenic nerve pacing was performed from the SVC, right innominate vein area and diaphragm voltage was monitored. Diaphragmatic contractions were also monitored manually for strength of contraction. At the end of the procedure the Achieve catheter was once again used to check for entrance block Phrenic nerve stimulation was performed to confirm diaphragmatic stimulation the end of the procedure Cine fluoroscopy was performed at the very end of the procedure to confirm movement of both diaphragms with inspiration and expiration At the end of the procedure the patient was extubated Venous sheaths were removed and hemostasis assured with a closure device PROCEDURES PERFORMED Diagnostic EP study CS pacing and recording Left and right transseptal catheterization Catheter the mapping of the tachycardia Intracardiac echocardiography Pulmonary vein isolation with transseptal and comprehensive EPS, [id number] Drug infusion, +[id number] Left atrial roof line, +[id number] Linear ablation, left atrium, +[id number] Electrical cardioversion with a synchronized shock across the chest [id number]
--- NOTE | 2021-08-28 10:46 | P.EPPROC ---
- EP Procedure Note Electrophysiology Procedure Note: Extended procedure The patient had a complex right inferior pulmonary vein anatomy and take-off This was quite posterior to the right superior pulmonary vein, requiring multiple attempts to cannulate and occlude this vein Intracardiac echo guidance had to be used to confirm the actual os of the right inferior pulmonary vein and occlusion of this vein A hockey stick approach had to be used, despite that multiple attempts were made First Cryo lesion delivered and terminated prematurely because of suboptimal temperatures and lack of occlusion the septal aspect of the vein Steeper FLORES on fluoroscopy and with intracardiac echo guidance The vein was occluded proximally and a venogram was performed and a 3 minutecryo ablation was performed effectively with isolation Ablation of the RIPV took longer than usual
[2021-08-28] MEDS: METOPROLOL TARTRATE 50 MG TAB PO SCH (20:40)
[2021-08-28] MEDS ORDERED: APIXABAN 5 MG TAB PO SCH (21:00)
[2021-08-28] MEDS ORDERED: PRAVASTATIN SODIUM 80 MG TAB PO SCH (21:00)
[2021-08-29] MEDS: FUROSEMIDE 40 MG TAB PO SCH ×2 (05:36→08:16)
[2021-08-29] MEDS: APIXABAN 5 MG TAB PO SCH (08:15)
[2021-08-29] MEDS: METOPROLOL TARTRATE 50 MG TAB PO SCH (08:15)
--- NOTE | 2021-08-29 08:34 | P.DS ---
Providers Attending physician: Corky Newell Primary care physician: [facility] [place] Hospital Course: Patient is doing well. He is resting comfortably in bed. No chest discomfort. Minor sore throat Blood pressure 134/72 mmHg afebrile 98.5F pulse rate in the 70s and 80s occasional PVCs No atrial fibrillation On examination heart sounds S1 and S2 are normal No JVD Abdomen soft Lungs are clear no rhonchi no crackles Normal S1 normal S2 no murmurs or gallops no rub minimal bruising no hematoma No lower extremity edema Impression Paroxysmal symptomatic atrial fibrillation Status post cryoablation of the pulmonary veins Stable from a cardiovascular standpoint home today Continue anticoagulation Reduce metoprolol to 50 g twice daily Home blood pressure monitoring Follow-up with Dr. Goldstein in a week Plan - Discharge Summary Discharge Rx Participant: No New Discharge Prescriptions: New RX: Metoprolol Tartrate [Lopressor] 50 mg PO BID #90 tab Discontinued RX: Metoprolol Tartrate [Lopressor] 50 mg PO TID #270 tab No Action RX: Ipratropium/Albuterol Sulfate [Combivent Respimat Inhaler] 1 puff INHALATION RT-Q6H RX: Albuterol Sulfate [Proair Hfa] 2 puff INHALATION RT-Q6H PRN PRN Reason: Shortness Of Breath RX: Ascorbic Acid [Vitamin C] 500 mg PO DAILY RX: Cholecalciferol [Vitamin D3 (25 Mcg = 1000 Iu)] 50 mcg PO DAILY RX: Apixaban [Eliquis] 5 mg PO BID 30 Days #60 tab Pravastatin Sodium [Pravachol] 40 mg PO HS Discharge Medication List RX: Albuterol Sulfate [Proair Hfa] 2 puff INHALATION RT-Q6H PRN 06/20/21 [History] RX: Apixaban [Eliquis] 5 mg PO BID 30 Days #60 tab 06/20/21 [Rx] RX: Ascorbic Acid [Vitamin C] 500 mg PO DAILY 06/20/21 [History] RX: Cholecalciferol [Vitamin D3 (25 Mcg = 1000 Iu)] 50 mcg PO DAILY 06/20/21 [History] RX: Ipratropium/Albuterol Sulfate [Combivent Respimat Inhaler] 1 puff INHALATION RT-Q6H 06/20/21 [History] Pravastatin Sodium [Pravachol] 40 mg PO HS 08/15/21 [History] RX: Metoprolol Tartrate [Lopressor] 50 mg PO BID #90 tab 08/28/21 [Rx] Follow up Appointment(s)/Referral(s): Alejandro Goldstein DO [STAFF PHYSICIAN] - 1 Week (Follow Dr. Goldstein in 1-2 weeks) Activity/Diet/Wound Care/Special Instructions: Post EP study - Ablation instructions 1. Keep access sites dry for 2 days. 2. No heavy lifting or straining for 2 days. 3. Avoid bending the hips repeatedly for 2 days. 4. You may go up and down stairs slowly Call if the following is noted 1. Bleeding, increasing swelling or pain at the access sites. 2. Increasing chest discomfort, especially upon taking a deep breath. 3. Increasing shortness of breath, at rest or with exertion. 4. Undue cough / phlegm 5. Difficulty or pain while swallowing. 6. Pain or change in color in the extremities. 7. Fever, chills, rigors. 8. Increasing headache or neurologic symptoms. 9. Dizziness, fainting, palpitations Follow Dr. Goldstein in 1 week Reduce metoprolol to 50 mg twice daily Continue ELIQUIS 5 mg twice daily Discharge Disposition: HOME SELF-CARE
[2021-08-29 08:37] VITALS: BP 154/58; PULSE 74; RESP 18; TEMP 98.2
== END 2021-08-29 11:57 | disposition home or self-care (01) ==
LOC: CATHEP 05:47 → 6NMEDSUR 12:02 → CATHEP 08-29 11:57
PROVIDERS: ATTEND Internal Medicine Clinical Cardiac Electrophysiology
DX: I48.91 Unspecified atrial fibrillation (principal); Z20.822 Contact with and (suspected) exposure to COVID-19
CPT/HCPCS: 93656; 92960; 94640; 87635; J2001; Q9967; J1644; 93609; 93623

== ENCOUNTER 2021-11-21 07:17 | Day surgery (SDC) | payer OTHER ==
[2021-11-16 11:06] VITALS: BMI 24.7
[~2021-11-21 07:17] MED LIST changes: +ALPRAZolam 0.25 MG TAB PO PRN; +ALPRAZolam 0.5 MG TAB PO PRN; +ASPIRIN 325 MG TAB PO STA; +HEPARIN SODIUM,PORCINE 10,000 UNIT in SODIUM CHLORIDE 0.9% 1,000 ML IRRIGATION PRN; +HEPARIN SODIUM,PORCINE 2,500 UNIT in SODIUM CHLORIDE 0.9% 250 ML IRRIGATION PRN; -LACTATED RINGERS 1,000 ML IV SCH; +NITROGLYCERIN SL TABS 0.4 MG TAB SUBLINGUAL PRN; +SODIUM CHLORIDE 0.9% 1,000 ML in EMPTY BAG 1 BAG IV SCH
[2021-11-21 07:49] VITALS: RESP 18; TEMP 98.3
[2021-11-21 08:01] LABS: Basophils % (A) 0 %; Eosinophils # (A) 0.3 k/uL (0-0.7); Eosinophils % (A) 3 %; HGB 15.8 gm/dL (13.0-17.5); Lymphocytes # (A) 1.7 k/uL (1.0-4.8); Lymphocytes % (A) 19 %; MCH 31.4 pg (25.0-35.0); MCHC 32.8 g/dL (31.0-37.0); MCV 95.5 fL (80.0-100.0); Mean Platelet Volume 8.5; Monocytes # (A) 0.7 k/uL (0-1.0); Monocytes % (A) 8 %; Neutrophils % (A) 67 %; Platelet Count 249 k/uL (150-450); RBC 5.03 m/uL (4.30-5.90); RDW 13.4 % (11.5-15.5); WBC 8.9 k/uL (3.8-10.6)
[2021-11-21 08:07] LABS: African American GFR (CKD) >90 (>60 ml/min/1.73 sqM); Anion Gap 7 mmol/L; Blood Urea Nitrogen 14 mg/dL (9-20); Calcium 9.4 mg/dL (8.4-10.2); Carbon Dioxide 26 mmol/L (22-30); Chloride 104 mmol/L (98-107); Glucose 125 mg/dL (74-99); Non-African American GFR(CKD) >90 (>60 ml/min/1.73 sqM); Potassium 4.7 mmol/L (3.5-5.1); Sodium 137 mmol/L (137-145)
[2021-11-21] MEDS ORDERED: HEPARIN SODIUM 1,000 UN/ML (10ML VL) ONE (08:53)
[2021-11-21] MEDS ORDERED: LIDOCAINE 1% INJ 10MG/ML (20 ML MDV) ONE (08:53)
[2021-11-21] MEDS ORDERED: VERAPAMIL 2.5 MG/ML 2 ML AMP ONE (08:53)
[2021-11-21] MEDS ORDERED: fentaNYL (PF) 50 MCG/ML 2 ML AMP ONE (08:55)
[2021-11-21] MEDS: MIDAZOLAM 2 MG/2 ML VIAL IV ONE ×2 (09:00→09:44)
[2021-11-21] MEDS ORDERED: fentaNYL (PF) 50 MCG/ML 2 ML AMP IV ONE (09:04)
[2021-11-21] MEDS ORDERED: LIDOCAINE 1% INJ 10MG/ML (20 ML MDV) SQ ONE (09:06)
[2021-11-21] MEDS ORDERED: VERAPAMIL SYRINGE (5 MG/10 ML) INTRAARTER ONE (09:07)
[2021-11-21] MEDS: NITROGLYCERIN 1000MCG/10ML SYRINGE INTRACORON ONE ×3 (09:18→10:16)
[2021-11-21] MEDS ORDERED: CLOPIDOGREL 75 MG TAB ONE (09:56)
[2021-11-21] MEDS ORDERED: CLOPIDOGREL 75 MG TAB PO ONE (10:03)
[2021-11-21] MEDS ORDERED: IOPAMIDOL-370 125ML BTL INJ ONE (10:06)
[2021-11-21] MEDS ORDERED: IOPAMIDOL-370 100ML BTL INJ ONE (10:30)
[2021-11-21 14:33] VITALS: PULSE 57
[2021-11-21 15:09] VITALS: BP 163/70
--- NOTE | 2021-11-21 23:09 | P.PRCINT ---
Percutaneous Coronary Int. - Percutaneous Coronary Intervention Percutaneous Coronary Intervention: PROCEDURES PERFORMED: Left heart catheterization, bilateral coronary angiography, PCI LAD with overlapping 3.0 x 18mm and 3.0 x 33mm Xience DENNIS post dilated with 3.5NC balloon, IVUS LAD INDICATION: Abnormal stress test, angina class 3-4 HISTORY:Patient is a pleasant 71 year old male with history of PAFib who has been having increased episodes of chest pain, dyspnea over the last 3 months despite antianginals. Symptoms have been occuring with exertion however also at rest. He had a stress test which showed relatively fixed inferior defect with some reversibility along the apical inferior wall which may be related to infarct with perinfarct ischemia or with diaphragmatic attenuation artifact with additional ischemia. Therefore heart catheterization was recommended. CONSENT:I have discussed the risks, benefits and alternative therapies for the above-mentioned procedure and for both sedation/analgesia as well as necessary blood product administration, if indicated, as they pertain to this patient. T he patient has indicated understanding and acceptance of the risks and procedures discussed. PROCEDURE: After the risks, benefits and alternatives of the above mentioned procedure explained in detail with the patient, informed consent was obtained. Patient was taken to the catheterization lab and prepped and draped in usual fashion. 1% lidocaine was used to anesthetize the right radial artery. A 6- Malaysian sheath was placed in the right radial artery using modified Seldinger technique. Left coronary angiography was performed with a 5-Malaysian JL 3.5 catheter and right coronary angiography was performed with a 5-Malaysian JR5 catheter in various views. A 5-Malaysian FR5 catheter was inserted into the left ventricle and pressure measurements were obtained. The decision was made to perform iFR of the LAD however iFR was set up and due to technical malfunction, iFR was not able to be completed. Therefore the decision was made to perform IVUS of the LAD. Heparin was given. A 6Fr CLS 3.5 guide was used to engage the LAD. A 0.014 wire was advanced into the distal LAD. An IVUS catheter was advanced into the lesion however was not able to fully pass the lesion and at the level advanced to the lesion was noted to be 83% stenosis. Therefore the decision was made to perform PCI of the LAD. Predilation was performed with a 2.5 x 12mm balloon however edwin and therefore a 2.75 x 15mm balloon was used to predilate the lesion. Next a 3.0 x 18mm Xience DENNIS was advanced and deployed, attempting to not involve the diagonal branch. After deployment, IVUS was repeated which still showed significant disease at the end of the stent as well as more diffuse disease of the mid LAD up to 70% stenosis. Therefore an additional 3.0 x 33mm Xience DENNIS was deployed overlapping the distal end of the 1st stent. Both stents were post dilated with a 3.5 NC balloon. Pre intervention there was 80% stenosis and ABRAM 2-3 flow and post intervention there was 0% stenosis and ABRAM 3 flow. The right radial sheath was removed and a TR band was placed with hemostasis achieved. The patient tolerated the procedure well. Patient was transported back to the post catheterization holding area in stable condition. Conscious Sedation: Patient was monitored under the direct supervision of vision of myself for conscious sedation using Versed and fentanyl for a total duration of 97 minutes HEMODYNAMICS: Ao: 143/76 LV: 146/5, LVEDP 22mmHg SELECTIVE CORONARY ARTERIOGRAPHY: LEFT MAIN: The left main is a large caliber vessel which bifurcates into the LAD and circumflex. There is no significant stenosis. LEFT ANTERIOR DESCENDING CORONARY ARTERY: LAD is a large caliber vessel which wraps around to the apex. There is a proximal LAD 80% stenosis and an additional diffuse 50-70% mid LAD stenosis just after this lesion. Otherwise there are mild luminal irregularities. LEFT CIRCUMFLEX CORONARY ARTERY: Left circumflex is a moderate to large caliber vessel which is codominant. There is a proximal 60-70% circumflex stenosis. Otherwise there are mild luminal irregularities. RIGHT CORONARY ARTERY: The right coronary artery is a large caliber vessel which gives off a PDA and PLV branch and is the dominant vessel. There is a distal RCA 30-40% stenosis. FINAL IMPRESSION: 1. CAD as described above including 80% proximal LAD, 50-70% mid LAD, 60-70% proximal circumflex and 30-40% RCA stenosis. 2. S/p PCI LAD with overlapping 3.0 x 18mm and 3.0 x 33mm Xience DENNIS post dilated with 3.5NC balloon 3. Elevated left sided filling pressures PLAN: 1. Aggressive risk factor modification per most recent ACC/AHA guidelines. 2. Continue triple therapy with Eliquis, aspirin and Plavix for 30 days then change to Eliquis and Plavix for minimum of 6 months. 3. Consider further ischemic workup of circumflex lesion such as iFR if patient continues to have significant angina.
== END 2021-11-21 15:37 | disposition home or self-care (01) ==
LOC: CATHCVL 07:17
PROVIDERS: ATTEND Internal Medicine
DX: I12.9 Hypertensive chronic kidney disease with stage 1 through stage 4 chronic kidney disease, or unspecified chronic kidney disease (principal); N18.9 Chronic kidney disease, unspecified; I48.0 Paroxysmal atrial fibrillation; J44.9 Chronic obstructive pulmonary disease, unspecified; Z79.01 Long term (current) use of anticoagulants; Z79.899 Other long term (current) drug therapy
CPT/HCPCS: 92978; 93458; 80048; 85025; 87635; C9600; C1769 ×2; C1887; C1894; C1725 ×3; C1753; C1874 ×3; J2250; J2001; J3010; J1644; Q9967 ×2

== ENCOUNTER → 2022-01-09 | Outpatient (CLI) | payer OTHER ==
[2022-01-09 18:09] LABS: African American GFR (CKD) 107.3 (60.0-200.0); Anion Gap 11.5 mmol/L (10.00-18.00); Blood Urea Nitrogen 14.4 mg/dL (9.0-27.0); Carbon Dioxide 27.7 mmol/L (20.0-27.5); Non-African American GFR(CKD) 92.6 (60.0-200.0); Potassium 4.7 mmol/L (3.5-5.5)
[2022-01-09 18:47] LABS: HCT 43.9 % (39.6-50.0); HGB 14.5 g/dL (13.0-17.0); MCH 31.7 pg (27.0-32.0); MCV 95.9 fL (80.0-97.0); Mean Platelet Volume 10.9 fL (9.5-12.2); NRBC Per 100 WBC 0 /100 WBCS (0.0-0.0); Platelet Count 215 X 10*3/uL (140-440); RBC 4.58 X 10*6/uL (4.40-5.60); RDW 13.4 % (11.5-14.5); WBC 6.84 X 10*3/uL (4.50-10.00)
== END | disposition home or self-care (01) ==
LOC: LABPAT 13:36
PROVIDERS: ATTEND Internal Medicine
DX: Z01.812 Encounter for preprocedural laboratory examination (principal); R06.02 Shortness of breath
CPT/HCPCS: 80051; 82565; 84520; 85027

== ENCOUNTER → 2022-01-26 | Outpatient (CLI) | payer OTHER ==
[2022-01-26 14:33] LABS: ALT 13 U/L (10-49); AST 18 U/L (14-35); Chol/HDL Ratio 2.55 Ratio; VLDL Calculation 13.22 mg/dL (5.00-40.00)
== END | disposition home or self-care (01) ==
LOC: LABWHC1 08:50
PROVIDERS: ATTEND Internal Medicine
DX: E78.2 Mixed hyperlipidemia (principal)
CPT/HCPCS: 36415; 80061; 84450; 84460

== ENCOUNTER → 2023-06-14 | Outpatient (CLI) | payer MEDICARE, OTHER ==
[2023-06-14 12:01] LABS: African American GFR (CKD) >90 (>60 ml/min/1.73 sqM); Blood Urea Nitrogen 25 mg/dL (9-20); Non-African American GFR(CKD) >90 (>60 ml/min/1.73 sqM)
--- NOTE | 2023-06-14 19:04 | CT ---
EXAMINATION TYPE: CT soft tissue neck w con DATE OF EXAM: 06/14/2023 COMPARISON: None HISTORY: 72-year-old male R49.0, dysphonia, hoarseness in throat TECHNIQUE: Contiguous axial scanning of the soft tissues of the neck performed with IV Contrast, slava ent injected with 100 mL of Isovue 300. Coronal/sagittal reconstructions performed. CT DLP: 494.5 mGycm Automated exposure control for dose reduction was used. FINDINGS: Visualized intracranial structures, orbits and globes, and mastoid air cells appear clear. There is m ild mucosal thickening ethmoid air cells and maxillary sinuses with leftward nasal septal deviation. Nasopharynx appears clear. There is nodular soft tissue along the posterior tongue base likely corresponding to prominently with tonsillar atrophy but should be confirmed with direct inspection, for example, refer to sagittal joycelyn ge 43 where this has a masslike appearance measuring 1.4 cm. Oropharynx otherwise clear. Glottic and subglottic structures as well as the tracheal column appear clear. There is mild emphysem atous change in the visualized upper lungs. The thyroid and submandibular glands as well as the bilateral parotid glands appear satisfactory. Scattered nonenlarged lymph nodes along both sides of the neck. Bones: Moderate multilevel spondylotic change is present throughout. IMPRESSION: 1. NODULAR SOFT TISSUE ALONG THE POSTERIOR BASE OF THE TONGUE MAY REPRESENT PROMINENT LINGUAL TONSILL AR HYPERTROPHY. SOME OF THIS HAS A MASSLIKE APPEARANCE MEASURING UP TO 1.4 CM (FOR EXAMPLE, REFER TO SAGITTAL IMAGE 43). RECOMMEND DIRECT VISUALIZATION TO CONFIRM TONSILLAR HYPERTROPHY AND EXCLUDE NEOPL ASM. 2. 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 3. COPD WITH MILD EMPHYSEMA. OTHERWISE, NO SPECIFIC ABNORMALITY SEEN.
== END | disposition home or self-care (01) ==
LOC: RADCTMAIN 11:10
PROVIDERS: ATTEND Otolaryngology
DX: Z13.9 Encounter for screening, unspecified (principal); J43.9 Emphysema, unspecified; J34.89 Other specified disorders of nose and nasal sinuses; R49.0 Dysphonia
CPT/HCPCS: 82565; 84520; 70491; 36415; Q9967

== ENCOUNTER 2023-07-17 11:09 | Day surgery (SDC) | payer MEDICARE ==
[2023-07-12 12:14] VITALS: BMI 25.7
[~2023-07-17 11:09] MED LIST changes: -ALPRAZolam 0.25 MG TAB PO PRN; -ALPRAZolam 0.5 MG TAB PO PRN; -ASPIRIN 325 MG TAB PO STA; +DEXAMETHASONE SOD PHOSPHATE 4 MG/ML 1 ML VIAL IV ONE; +FAMOTIDINE 20 MG/2 ML VIAL IV PRN; -HEPARIN SODIUM,PORCINE 10,000 UNIT in SODIUM CHLORIDE 0.9% 1,000 ML IRRIGATION PRN; -HEPARIN SODIUM,PORCINE 2,500 UNIT in SODIUM CHLORIDE 0.9% 250 ML IRRIGATION PRN; +HYDROmorphone 0.5 MG/0.5 ML SYRINGE IVP PRN; +LACTATED RINGERS 1,000 ML IV SCH; +LIDOCAINE 1% (10MG/ML) FOR IV START INTRADERMA PRN; +MIDAZOLAM 2 MG/2 ML VIAL IV PRN; -NITROGLYCERIN SL TABS 0.4 MG TAB SUBLINGUAL PRN; +ONDANSETRON 4 MG/2 ML VIAL IVP ONE; -SODIUM CHLORIDE 0.9% 1,000 ML in EMPTY BAG 1 BAG IV SCH
[2023-07-17] MEDS ORDERED: ePHEDrine 50 MG/ML 1 ML VIAL ONE (12:01)
[2023-07-17] MEDS ORDERED: LIDOCAINE 1% INJ 10MG/ML (20 ML MDV) ONE (12:01)
[2023-07-17] MEDS ORDERED: PROPOFOL 10 MG/ML 20 ML VIAL IV ONE (12:01)
[2023-07-17] MEDS ORDERED: SUCCINYLCHOLINE CHLORIDE 200 MG/10 ML VIAL IV ONE (12:01)
[2023-07-17] MEDS ORDERED: PHENYLEPHRINE-0.9% NACL SYG 1,000 MCG/10 ML SYRINGE ONE (12:01)
[2023-07-17] MEDS ORDERED: fentaNYL (PF) 50 MCG/ML 2 ML AMP ONE (12:01)
[2023-07-17] MEDS ORDERED: MIDAZOLAM 2 MG/2 ML VIAL ONE (12:01)
[2023-07-17] MEDS ORDERED: SILVER NITRATE APPLICATOR 1 EACH STICK..EA. TOPICAL ONE (12:38)
--- NOTE | 2023-07-17 12:46 | P.OP ---
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 Also was noted to have an incidental exam some irregularity at the base of tongue as well as on the CT. Operative Findings: Rigid esophagoscopy was unremarkable as well as flexible bronchoscopy. The laryngeal exam was unremarkable. Base of tongue has multinodular lymphoid appearing tissue but this was most prominent on the left base of tongue and therefore biopsies were taken. Mucosa appeared intact with no erythema Description of Procedure: Patient brought in the operative suite and placed in a supine position. Patient underwent induction of general anesthesia with oral endotracheal intubation without difficulty. The patient was prepped and draped in usual aseptic fashion. Tooth guard was placed. Esophagoscopy was performed to a level of 40 cm from the upper incisors with no mucosal lesions noted this is one withdrawn. This was done atraumatically. Direct laryngoscopy was then performed with systematic evaluation of the base of tongue vallecula both piriform sinuses post cricoid area and endolarynx. With the larynx in good visualization the laryngoscope was placed in suspension and flexible bronchoscopy was performed through the laryngoscope to well over the secondary bronchi with no abnormalities noted. The bronchoscope was then withdrawn. The larynx did not show any abnormalities visually. In particular the right vocal cord. The laryngoscope was then withdrawn to a point where the base of tongue was well visualized and multiple small biopsies were taken at the left base of tongue were this was most nodular. These were sent for permanent section. Hemostasis gained with silver nitrate. The laryngoscope and tooth guard then removed. Patient was allowed to emerge from general anesthesia having tolerated well was extubated in the operating suite and transferred to postop recovery area in satisfactory condition.
[2023-07-17 13:17] VITALS: TEMP 97
[2023-07-17 14:15] VITALS: BP 140/78; PULSE 70; RESP 18
== END 2023-07-17 14:37 | disposition home or self-care (01) ==
LOC: OR 11:09
PROVIDERS: ATTEND Otolaryngology
DX: D37.02 Neoplasm of uncertain behavior of tongue (principal); J38.01 Paralysis of vocal cords and larynx, unilateral; I10 Essential (primary) hypertension; J35.1 Hypertrophy of tonsils; I25.10 Atherosclerotic heart disease of native coronary artery without angina pectoris; I48.91 Unspecified atrial fibrillation; J44.9 Chronic obstructive pulmonary disease, unspecified; Z79.02 Long term (current) use of antithrombotics/antiplatelets; Z79.01 Long term (current) use of anticoagulants; Z79.899 Other long term (current) drug therapy; Z95.5 Presence of coronary angioplasty implant and graft; Z87.891 Personal history of nicotine dependence; Z85.828 Personal history of other malignant neoplasm of skin; Z79.51 Long term (current) use of inhaled steroids
CPT/HCPCS: 88305; 31536; J2250; J0330; J1100; J0690; J2405; J2001; J3010; J3490; J2704; J2371

== ENCOUNTER → 2023-12-20 | Day surgery (SDC) | payer MEDICARE, OTHER ==
[~2023-12-20] MED LIST changes: -DEXAMETHASONE SOD PHOSPHATE 4 MG/ML 1 ML VIAL IV ONE; -FAMOTIDINE 20 MG/2 ML VIAL IV PRN; -HYDROmorphone 0.5 MG/0.5 ML SYRINGE IVP PRN; -LACTATED RINGERS 1,000 ML IV SCH; -MIDAZOLAM 2 MG/2 ML VIAL IV PRN; -ONDANSETRON 4 MG/2 ML VIAL IVP ONE; +PROPOFOL 10 MG/ML 20 ML VIAL IV ONE
[2023-12-20] MEDS: LACTATED RINGERS 1,000 ML IV SCH (12:31)
[2023-12-20 12:46] VITALS: TEMP 97.8
--- NOTE | 2023-12-20 13:44 | P.PCN ---
Date of Procedure: 12/20/23 Procedure(s) Performed: BRIEF HISTORY: Patient is a 73-year-old pleasant white male scheduled for an elective colonoscopy as a part of evaluation for history of colon polyps PROCEDURE PERFORMED: Colonoscopy biopsy and snare polypectomy. PREOPERATIVE DIAGNOSIS: History of colon polyps. IV sedation per Anesthesia. PROCEDURE: After informed consent was obtained, the patient, was brought into the endoscopy unit. IV sedation was administered by Anesthesia under continuous monitoring. Digital rectal examination was normal. Initially the Olympus CF-160 flexible video colonoscope was then inserted in the rectum, gradually advanced into the cecum without any difficulty. Careful examination was performed as the scope was gradually being withdrawn. Ileocecal valve and the appendiceal orifice were visualized and appeared normal. Prep was excellent. Mucosa of the cecum had a 3 mm sessile polyp removed with cold biopsy. In the ascending colon there was a 1 cm polyp removed by snare polypectomy. Rest of the ascending colon, transverse colon, descending colon, sigmoid colon, and rectum appeared normal. Scattered sigmoid diverticulosis. Retroflexion was performed in the rectum and small internal were seen. The patient tolerated the procedure well. IMPRESSION: 3 mm cecal polyp s/p removal by cold biopsy 1 cm ascending colon polyp status post snare polypectomy Scattered sigmoid diverticulosis Grade 2 internal hemorrhoids RECOMMENDATIONS: Findings of this examination were discussed with the patient as well as his family. He was advised to follow-up with the biopsy results. If the biopsy reveals adenoma he can recall in 3 years..
[2023-12-20 14:14] VITALS: BP 155/80; PULSE 53; RESP 16
== END ==
LOC: ORWHC2ENDO 11:44
PROVIDERS: ATTEND Internal Medicine Gastroenterology
DX: Z12.11 Encounter for screening for malignant neoplasm of colon (principal); K63.5 Polyp of colon; K57.30 Diverticulosis of large intestine without perforation or abscess without bleeding; K64.1 Second degree hemorrhoids; I48.91 Unspecified atrial fibrillation; I10 Essential (primary) hypertension; E78.5 Hyperlipidemia, unspecified; J44.9 Chronic obstructive pulmonary disease, unspecified; Z79.01 Long term (current) use of anticoagulants; Z79.51 Long term (current) use of inhaled steroids; Z86.010 Personal history of colon polyps; Z79.899 Other long term (current) drug therapy
CPT/HCPCS: 88305; 45380; 45385; J2704